=== PATIENT | male | born 1950 | race American Indian/Alaskan Native ===

== ENCOUNTER 2018-08-09 09:28 | Outpatient (CLI) | payer MEDICARE ==
[2018-08-09 10:04] LABS: Hematocrit 34.6 % (35.5-45.6); Mean Corpuscular HGB Conc 35 % (32-34); Mean Corpuscular Volume 92 fl (84-94); Platelet Count 150 K/mm3 (140-440); Red Blood Count 3.76 M/mm3 (3.65-5.03); Red Cell Distribution Width 13.1 % (13.2-15.2)
[2018-08-09 10:22] LABS: Alanine Aminotransferase 54 units/L (7-56); Albumin 3.6 g/dL (3.9-5); BUN/Creatinine Ratio 14; Blood Urea Nitrogen 18 mg/dL (9-20); Calcium 8.9 mg/dL (8.4-10.2); Hemolysis Index 19
[2018-08-09 10:42] LABS: Erythrocyte Sedimentation Rate 31 mm/Hr (0-20)
== END 2018-08-09 09:29 | disposition home or self-care (01) ==
LOC: LAB 09:28
PROVIDERS: ATTEND Specialist
DX: G40.211 Localization-related (focal) (partial) symptomatic epilepsy and epileptic syndromes with complex partial seizures, intractable, with status epilepticus (principal)
CPT/HCPCS: 36415; 80053; 85027; 85652

== ENCOUNTER 2018-08-28 10:01 | Outpatient (CLI) | payer MEDICARE ==
[2018-08-28 10:49] LABS: Alanine Aminotransferase 49 units/L (7-56); Albumin 3.8 g/dL (3.9-5); Bilirubin,Direct < 0.2 mg/dL (0-0.2); Chol/HDL Ratio 4.67 %; HDL Cholesterol 37 mg/dL (40-59); LDL Cholesterol,Direct 136 mg/dL (50-130)
== END 2018-08-28 10:02 | disposition home or self-care (01) ==
LOC: LAB 10:01
PROVIDERS: ATTEND Specialist
DX: G45.9 Transient cerebral ischemic attack, unspecified (principal)
CPT/HCPCS: 36415; 80061; 80076